=== PATIENT | male | born 1975 | race Caucasian/White ===

== ENCOUNTER 2017-07-10 15:46 | Emergency (ER) | payer SELFPAY ==
[2017-07-10] MEDS ORDERED: hydroCHLOROthiazide 25 MG TAB ONE (16:40)
--- NOTE | 2017-07-10 17:18 | ER ---
Nurse's Notes [facility] Name: Jimmie Buenrostro Age: 41 yrs Sex: Male : 1975 Arrival Date: 07/10/2017 Time: 15:52 Bed 12 Private MD: Diagnosis: Essential (primary) hypertension Presentation: 07/10 15:54 Presenting complaint: Patient states: Reports HTN when having physical for new job aj today. Transition of care: patient was not received from another setting of care. Onset of symptoms was July 10, 2017. Initial Sepsis Screen: Does the patient meet any 2 criteria? No. Patient's initial sepsis screen is negative. Does the patient have a suspected source of infection? No. Patient's initial sepsis screen is negative. Care prior to arrival: None. 15:54 Method Of Arrival: Ambulatory aj 15:54 Acuity: SANDEEP 3 aj Triage Assessment: 15:55 General: Appears in no apparent distress. comfortable, Behavior is calm, cooperative, aj appropriate for age. Pain: Denies pain. Neuro: Level of Consciousness is awake, alert, obeys commands, Oriented to person, place, time, situation, Appropriate for age. Respiratory: Airway is patent Respiratory effort is even, unlabored, Respiratory pattern is regular, symmetrical. Derm: Skin is intact, is healthy with good turgor, Skin is pink, warm \\T\\ dry. normal. Historical: - Allergies: 15:55 PENICILLINS; aj - Home Meds: 15:55 None [Active]; aj - PMHx: 15:55 Hypertension; aj - PSHx: 15:55 None; aj - Immunization history:: Adult Immunizations up to date. - Social history:: Smoking status: . Screenin:58 Abuse screen: Denies threats or abuse. Denies injuries from another. Nutritional ed1 screening: No deficits noted. Tuberculosis screening: No symptoms or risk factors identified. Fall Risk None identified. Assessment: 15:58 General: Appears in no apparent distress. Behavior is calm, cooperative, Pt reports ed1 history of HTN but quit taking medication "a few years ago" and does not have a PCP.. Pain: Denies pain. Neuro: Level of Consciousness is awake, alert, obeys commands, Oriented to person, place, time, situation, Denies weakness blurred vision dizziness, headache. Cardiovascular: Denies chest pain, Heart tones S1 S2 present. Respiratory: Airway is patent Trachea midline Respiratory effort is even, unlabored, Respiratory pattern is regular, symmetrical, Breath sounds are clear bilaterally. GI: No signs and/or symptoms were reported involving the gastrointestinal system. : No signs and/or symptoms were reported regarding the genitourinary system. EENT: No signs and/or symptoms were reported regarding the EENT system. Derm: Skin is intact, is healthy with good turgor, Skin is dry, Skin is normal, Skin temperature is warm. Musculoskeletal: Circulation, motion, and sensation intact. Range of motion: intact in all extremities. 15:58 Reassessment: I agree with assessment completed by BISHNU Lantigua . aa5 17:14 Reassessment: Patient appears in no apparent distress at this time. No changes from ed1 previously documented assessment. Patient and/or family updated on plan of care and expected duration. Pain level reassessed. Patient is alert, oriented x 3, equal unlabored respirations, skin warm/dry/pink. Patient denies pain at this time. Vital Signs: 15:55 BP 168 / 106; Pulse 80; Resp 18; Temp 98.0; Pulse Ox 98% on R/A; Weight 127.01 kg; aj Height 6 ft. 2 in. (187.96 cm); Pain 0/10; 17:14 BP 150 / 95 LA Supine (auto/reg); Pulse 65; Resp 18; Pulse Ox 97% on R/A; Pain 0/10; ed1 17:26 BP 150 / 95; ed1 15:55 Body Mass Index 35.95 (127.01 kg, 187.96 cm) aj ED Course: 15:52 Patient arrived in ED. sb2 15:54 Triage completed. aj 15:55 Arm band placed on left wrist. Patient placed in an exam room. aj 15:57 Rhina Elizondo LVN is Primary Nurse. ed1 15:58 Patient has correct armband on for positive identification. Call light in reach. ed1 16:00 Awaiting ED provider evaluation. ed1 16:23 Olga Fiore FNP-C is PHCP. kb 16:23 Hayden Hernandez MD is Attending Physician. kb 17:06 EKG done, by food equipment service technician. reviewed by Olga HERNANDEZ. at1 17:15 Awaiting disposition. ed1 17:26 No provider procedures requiring assistance completed. Patient did not have IV access ed1 during this emergency room visit. Administered Medications: 16:40 Drug: Hydrochlorothiazide 25 mg Route: PO; ed1 17:26 Follow up: BP 150 / 95; Response: No adverse reaction; Blood pressure is lowered ed1 Outcome: 17:18 Discharge ordered by MD. franks 17:26 Discharged to home ambulatory. ed1 17:26 Condition: good 17:26 Discharge instructions given to patient, Instructed on discharge instructions, follow up and referral plans. medication usage, Demonstrated understanding of instructions, follow-up care, medications, Prescriptions given X 1. 17:27 Patient left the ED. ed1 Signatures: Olga Fiore, COAT ROOM ATTENDANT-C COAT ROOM ATTENDANT-Ckb Daina Easton, RN RN Roslyn Huerta RN RN aa5 Rhina Elizondo, BISHNU SENIOR ELECTRICAL DESIGN ENGINEER ed1 Daina hearn, underwear trimmer EKG Tat1 Jeana Retana sb2
--- NOTE | 2017-07-10 17:18 | EDPHYS ---
Physician Documentation [facility] Name: Jimmie Buenrostro Age: 41 yrs Sex: Male : 1975 Arrival Date: 07/10/2017 Time: 15:52 Bed 12 Private MD: ED Physician Hayden Hernandez HPI: 07/10 17:05 This 41 yrs old Male presents to ER via Ambulatory with complaints of High kb Blood Pressure. 17:05 The patient has elevated blood pressure and discovered this during work physical. kb Onset: The symptoms/episode began/occurred today. Associated signs and symptoms: The patient has no apparent associated signs or symptoms. Severity of symptoms: At its worst the blood pressure was moderate, 170 mm Hg. The patient has experienced similar episodes in the past. The patient has not recently seen a physician. Pt states he was on BP meds about 4 years ago, but his prescription ran out and he didn't go back to the dr. States he checks his BP every once in a while and it runs 170/101 typically. Denies chest pain, headache, visual disturbances. States he came in today because he is trying to get a job and during the physical they said his bp was too high and he had to come be evaluated. Historical: - Allergies: 15:55 PENICILLINS; aj - Home Meds: 15:55 None [Active]; aj - PMHx: 15:55 Hypertension; aj - PSHx: 15:55 None; aj - Immunization history:: Adult Immunizations up to date. - Social history:: Smoking status: . ROS: 17:04 Constitutional: Negative for fever, chills, and weight loss, Eyes: Negative for injury, kb pain, redness, and discharge, ENT: Negative for injury, pain, and discharge, Neck: Negative for injury, pain, and swelling, Cardiovascular: Negative for chest pain, palpitations, and edema, Respiratory: Negative for shortness of breath, cough, wheezing, and pleuritic chest pain, Abdomen/GI: Negative for abdominal pain, nausea, vomiting, diarrhea, and constipation, MS/Extremity: Negative for injury and deformity, Skin: Negative for injury, rash, and discoloration, Neuro: Negative for headache, weakness, numbness, tingling, and seizure. Exam: 17:04 Constitutional: This is a well developed, well nourished patient who is awake, alert, kb and in no acute distress. Head/Face: Normocephalic, atraumatic. Eyes: Pupils equal round and reactive to light, extra-ocular motions intact. Lids and lashes normal. Conjunctiva and sclera are non-icteric and not injected. Cornea within normal limits. Periorbital areas with no swelling, redness, or edema. ENT: Nares patent. No nasal discharge, no septal abnormalities noted. Tympanic membranes are normal and external auditory canals are clear. Oropharynx with no redness, swelling, or masses, exudates, or evidence of obstruction, uvula midline. Mucous membranes moist. Neck: Trachea midline, no thyromegaly or masses palpated, and no cervical lymphadenopathy. Supple, full range of motion without nuchal rigidity, or vertebral point tenderness. No Meningismus. Chest/axilla: Normal chest wall appearance and motion. Nontender with no deformity. No lesions are appreciated. Cardiovascular: Regular rate and rhythm with a normal S1 and S2. No gallops, murmurs, or rubs. Normal PMI, no JVD. No pulse deficits. Respiratory: Lungs have equal breath sounds bilaterally, clear to auscultation and percussion. No rales, rhonchi or wheezes noted. No increased work of breathing, no retractions or nasal flaring. Abdomen/GI: Soft, non-tender, with normal bowel sounds. No distension or tympany. No guarding or rebound. No evidence of tenderness throughout. Skin: Warm, dry with normal turgor. Normal color with no rashes, no lesions, and no evidence of cellulitis. MS/ Extremity: Pulses equal, no cyanosis. Neurovascular intact. Full, normal range of motion. Neuro: Awake and alert, GCS 15, oriented to person, place, time, and situation. Cranial nerves II-XII grossly intact. Motor strength 5/5 in all extremities. Sensory grossly intact. Cerebellar exam normal. Normal gait. Vital Signs: 15:55 BP 168 / 106; Pulse 80; Resp 18; Temp 98.0; Pulse Ox 98% on R/A; Weight 127.01 kg; aj Height 6 ft. 2 in. (187.96 cm); Pain 0/10; 17:14 BP 150 / 95 LA Supine (auto/reg); Pulse 65; Resp 18; Pulse Ox 97% on R/A; Pain 0/10; ed1 17:26 BP 150 / 95; ed1 15:55 Body Mass Index 35.95 (127.01 kg, 187.96 cm) jayme MDM: 16:23 Patient medically screened. kb 17:04 Data reviewed: vital signs, nurses notes. Data interpreted: Pulse oximetry: on room air kb is 98 %. Interpretation: normal. Counseling: I had a detailed discussion with the patient and/or guardian regarding: the historical points, exam findings, and any diagnostic results supporting the discharge/admit diagnosis, the need for outpatient follow up, a family practitioner, to return to the emergency department if symptoms worsen or persist or if there are any questions or concerns that arise at home. 17:05 ED course: Pt educated to keep blood pressure log and follow up with PCP. . kb 07/10 16:36 Order name: EKG; Complete Time: 16:36 kb 07/10 16:36 Order name: EKG - Nurse/Tech; Complete Time: 16:51 kb Administered Medications: 16:40 Drug: Hydrochlorothiazide 25 mg Route: PO; ed1 17:26 Follow up: BP 150 / 95; Response: No adverse reaction; Blood pressure is lowered ed1 Disposition: 07/11 07:20 Co-signature as Attending Physician, Hayden Hernandez MD I agree with the assessment and osmin plan of care. Disposition: 07/10/17 17:18 Discharged to Home. Impression: Essential (primary) hypertension. - Condition is Stable. - Discharge Instructions: Hypertension, [id number], DASH Eating Plan, Managing Your High Blood Pressure. - Prescriptions for Hydrochlorothiazide 25 mg Oral Tablet - take 1 tablet by ORAL route once daily .; 30 tablet. - Medication Reconciliation Form, Thank You Letter, Antibiotic Education, Prescription Opioid Use form. - Follow up: Emergency Department; When: As needed; Reason: Worsening of condition. Follow up: Private Physician; When: 2 - 3 days; Reason: Recheck today's complaints, Continuance of care, Re-evaluation by your physician. Signatures: Olga Fiore, DRY CLEANER PRESSER-C DRY CLEANER PRESSER-Daina Buckley RN RN aj Anderson, Corey, MD MD cha Riggs, Erika, COMPENSATION EXPERT COMPENSATION EXPERT ed1 Corrections: (The following items were deleted from the chart) 07/10 17:27 17:18 07/10/2017 17:18 Discharged to Home. Impression: Essential (primary) ed1 hypertension. Condition is Stable. Discharge Instructions: Hypertension, [id number], DASH Eating Plan, Managing Your High Blood Pressure. Prescriptions for Hydrochlorothiazide 25 mg Oral Tablet - take 1 tablet by ORAL route once daily .; 30 tablet. and Forms are Medication Reconciliation Form, Thank You Letter, Antibiotic Education, Prescription Opioid Use. Follow up: Emergency Department; When: As needed; Reason: Worsening of condition. Follow up: Private Physician; When: 2 - 3 days; Reason: Recheck today's complaints, Continuance of care, Re-evaluation by your physician. kb
--- NOTE | 2017-07-11 10:30 | EKG ---
Test Date: 2017-07-10 Test Time: 16:47:34 [employer] Qa Lab Technician: SHREYAS MEASUREMENT RESULTS: Intervals: Rate: 69 FL: 174 QRSD: 106 QT: 394 QTc: 422 [place]: P: 36 FL: 174 QRS: 92 T: 26 INTERPRETIVE STATEMENTS: Normal sinus rhythm Rightward axis Borderline ECG No previous ECG available for comparison Electronically Signed On 07-11-17 10:27:18 CDT by Sahil Bledsoe
== END 2017-07-10 17:27 | disposition home or self-care (01) ==
LOC: ER 15:46
DX: I10 Essential (primary) hypertension (principal); Z88.0 Allergy status to penicillin
CPT/HCPCS: 93005; 99283